=== PATIENT | female | born 1950 | race Native Hawaiian/Other Pacific Islander ===

== ENCOUNTER 2017-02-20 16:15 | Emergency (ER) | payer OTHER ==
[2017-02-20 16:35] VITALS: BMI 32.8
--- NOTE | 2017-02-20 17:06 | PDOC ---
History of Present Illness - General History Source: Patient Exam Limitations: No Limitations - History of Present Illness Initial Comments: 02/20/17 17:20 The patient is a 66 year old female, with a significant past medical history of diabetes and HTN, who presents to the emergency department with abdominal pain, bloating, fatigue, chills and nausea for the past day. She describes her pain as localized in the epigastric region, ranging from mild to moderate, without radiation or modifying factor. She also reports frequent burping associated with her chief complaint. She reports that she is not eating much but is being able to pass gas. She states that she is from [place] and is visiting her son whose birthday is today. She notes that she previously went to urgent care for treatment and was referred to the ED. The patient denies chest pain, shortness of breath, headache and dizziness. Denies fever, chills, vomit, diarrhea and constipation. Denies dysuria, frequency, urgency and hematuria. Allergies: Niacin, sulfa, metformin Past surgical history: None reported Social history: No alcohol, tobacco or drug use reported <Cameron Davila - Last Filed: 02/20/17 17:20> <Jose Waters - Last Filed: 02/20/17 22:01> - General Chief Complaint: Pain, Acute Stated Complaint: ABD PAIN Time Seen by Provider: 02/20/17 17:04 Past History <Cameron Davila - Last Filed: 02/20/17 17:20> - Suicide/Smoking/Psychosocial Hx Smoking History: Never smoked <Jose Waters - Last Filed: 02/20/17 22:01> - Past Medical History Allergies/Adverse Reactions: Allergies Allergy/AdvReac Type Severity Reaction Status Date / Time niacin Allergy Verified 02/20/17 16:32 metformin AdvReac Vomiting Verified 02/20/17 16:32 Sulfa (Sulfonamide AdvReac Verified 02/20/17 16:32 Antibiotics) Home Medications: Ambulatory Orders Alprazolam 2 mg PO HS 02/20/17 Aspirin [ASA -] 81 mg PO DAILY 02/20/17 Insulin Glargine,Hum.rec.anlog [Lantus (nf)] 50 units SQ HS 02/20/17 Insulin Lispro [Humalog] 10 unit SQ BID 10/19/17 Levothyroxine [Synthroid -] 0 mcg PO DAILY 02/20/17 Losartan Potassium [Cozaar -] 0 mg PO DAILY 02/20/17 Pravastatin Sodium [Pravachol (Nf)] 0 mg PO HS 02/20/17 Review of Systems - Review of Systems Able to Perform ROS?: Yes Comments:: 02/20/17 17:21 GENERAL/CONSTITUTIONAL: No fever or chills. No weakness. HEAD, EYES, EARS, NOSE AND THROAT: No change in vision. No ear pain or discharge. No sore throat.- CARDIOVASCULAR: No chest pain or shortness of breath RESPIRATORY: No cough, wheezing, or hemoptysis. GASTROINTESTINAL: (+) Abdominal pain and nausea. No vomiting, diarrhea or constipation. GENITOURINARY: No dysuria, frequency, or change in urination. MUSCULOSKELETAL: No joint or muscle swelling or pain. No neck or back pain. SKIN: No rash NEUROLOGIC: No headache, vertigo, loss of consciousness, or change in strength/ sensation. ENDOCRINE: No increased thirst. No abnormal weight change HEMATOLOGIC/LYMPHATIC: No anemia, easy bleeding, or history of blood clots. ALLERGIC/IMMUNOLOGIC: No hives or skin allergy. <Cameron Davila - Last Filed: 02/20/17 17:20> *Physical Exam - Vital Signs Last Vital Signs Temp Pulse Resp BP Pulse Ox 99.1 F 72 18 136/76 100 02/20/17 16:32 02/20/17 16:32 02/20/17 16:32 02/20/17 16:32 02/20/17 16:32 - Physical Exam Comments: 02/20/17 17:21 GENERAL: Awake, alert, and fully oriented, in no acute distress HEAD: No signs of trauma, normocephalic, atraumatic EYES: PERRLA, EOMI, sclera anicteric, conjunctiva clear ENT: Auricles normal inspection, hearing grossly normal, nares patent, oropharynx clear without exudates. Moist mucosa NECK: Normal ROM, supple, no lymphadenopathy, JVD, or masses LUNGS: No distress, speaks full sentences, clear to auscultation bilaterally HEART: Regular rate and rhythm, normal S1 and S2, no murmurs, rubs or gallops, peripheral pulses normal and equal bilaterally. ABDOMEN: (+) [place] sign. Soft, nontender, normoactive bowel sounds. No guarding, no rebound. No masses EXTREMITIES : Normal inspection, Normal range of motion, no edema. No clubbing or cyanosis. NEUROLOGICAL: Cranial nerves II through XII grossly intact. Normal speech, normal gait, no focal sensorimotor deficits SKIN: Warm, Dry, normal turgor, no rashes or lesions noted. <Cameron Davila - Last Filed: 02/20/17 17:20> - Vital Signs Last Vital Signs Temp Pulse Resp BP Pulse Ox 99.1 F 72 18 136/76 100 02/20/17 16:32 02/20/17 16:32 02/20/17 16:32 02/20/17 16:32 02/20/17 16:32 <Jose Waters - Last Filed: 02/20/17 22:01> ED Treatment Course - LABORATORY CBC & Chemistry Diagram: 02/20/17 18:20 02/20/17 18:20 <Jose Waters - Last Filed: 02/20/17 22:01> *DC/Admit/Observation/Transfer - Attestations Scribe Attestion: 02/20/17 17:22 Documentation prepared by Cameron Davila, acting as medical lab scientist for Jose Waters MD <Cameron Davila - Last Filed: 02/20/17 17:20> - Discharge Dispostion Admit: No - Attestations Physician Attestion: 02/20/17 17:06 I, Dr. Jose Waters, attest that this document has been prepared under my direction and personally reviewed by me in its entirety. I further attest, that it accurately reflects all work, treatment, procedures and medical decision -making performed by me. <Jose Waters - Last Filed: 02/20/17 22:01> Diagnosis at time of Disposition: Abdominal bloating, Malaise and fatigue, History of recent travel - Discharge Dispostion Disposition: HOME Condition at time of disposition: Unchanged/Unknown - Referrals Referrals: Jung Goldman MD [Staff Physician] - - Patient Instructions Printed Discharge Instructions: DI for Abdominal Pain-Adult Additional Instructions: Mrs Osorio- I am sorry that you do not feel well and you are experiencing some abdominal discomfort and bloating. Your laboratory work up is all unremarkable and does not lead us to a diagnosis. Your X-Rays do not show us anything wrong and your ultrasound shows us a normal gallbladder and there is no gallstone. I believe that you can use simethicone for gas and bloating, you can use the zofran odt for upset stomach and try to eat more fiber and drink more water. You can follow up with your doctors in [place] once you get home. You can call Dr. Goldman who is a power washer for follow up here in [place] if you are going to be here for a while. Return to us if worse or new symptoms occur. Best- Dr. Jose Waters
[2017-02-20 18:30] LABS: BASOPHIL 0.6 % (0-2.0); EOSINOPHIL 1.2 % (0-4.5); MCH 27.7 pg (25.7-33.7); MCHC 33.7 g/dl (32.0-36.0); MEAN CELL VOLUME 82.3 fl (80-96); MEAN PLT VOLUME 8.4 fl (7.5-11.1); NEUTROPHILS 60.6 % (42.8-82.8); PLATELET COUNT 230 K/MM3 (134-434); RDW 14.4 % (11.6-15.6); WHITE BLOOD COUNT 10.6 K/mm3 (4.0-10.0)
[2017-02-20 18:53] LABS: ALBUMIN 3.8 g/dl (3.4-5.0); ANION GAP 7 (8-16); BILIRUBIN,TOTAL 0.3 mg/dL (0.2-1.0); CALCIUM 8.4 mg/dL (8.5-10.1); CHOLESTEROL 191 mg/dL (50-200); CO2 28 mmol/L (21-32); CREATININE 0.8 mg/dL (0.55-1.02); GLUCOSE,RANDOM 108 mg/dL (74-106); SGPT/ALT 30 U/L (12-78); TOT PROT 7.5 g/dl (6.4-8.2)
[2017-02-20 18:55] LABS: ALK PHOS 100 U/L (45-117); CPK 233 IU/L (26-192); TROPONIN I < 0.02 ng/ml (0.00-0.05)
[2017-02-20 18:56] LABS: SGOT/AST 27 U/L (15-37)
[2017-02-20] MEDS ORDERED: ONDANSETRON *ODT* 4 MG TABLET SL ONE (21:02)
[2017-02-20] MEDS ORDERED: MAGNESIUM HYDROX 2400MG/30ML ORAL SUSPENSION 30 ML CUP PO ONE (21:02)
[2017-02-20] MEDS ORDERED: SIMETHICONE 80 MG TAB.CHEW (FP) PO ONE (21:04)
[2017-02-20] MEDS ORDERED: MAG HYDROX/AL HYDROX/SIMETH 30 ML UNIT-DOSE CUP ONE (21:44)
[2017-02-20] MEDS ORDERED: ONDANSETRON *ODT* 4 MG TABLET ONE (21:44)
[2017-02-20 22:21] VITALS: BP 128/72; PULSE 75; TEMP 98.6
--- NOTE | 2017-02-25 09:17 | EKG ---
Test Reason : Blood Pressure : / mmHG Vent. Rate : 075 BPM Atrial Rate : 075 BPM P-R Int : 152 ms QRS Dur : 078 ms QT Int : 364 ms P-R-T Axes : 057 020 135 degrees QTc Int : 406 ms NORMAL SINUS RHYTHM CANNOT RULE OUT ANTERIOR INFARCT , AGE UNDETERMINED NONSPECIFIC ST ABNORMALITY NO PREVIOUS ECGS AVAILABLE Confirmed by JESSICA MONTES MD ([id number]) on 02/21/2017 9:47:01 AM Also confirmed by JESSICA MONTES MD ([id number]), supervising editor news reel LISA JORGENSEN ([id number]) on 02/25/2017 9:16:44 AM Referred By: Confirmed By:JESSICA MONTES MD
== END 2017-02-20 22:20 | disposition home or self-care (01) ==
LOC: JER 16:15
DX: R10.84 Generalized abdominal pain (principal); R53.81 Other malaise
CPT/HCPCS: 36415; 71010-TC; 74020-TC; 76705-TC; 80053; 80061; 82550; 82553; 83721; 84484; 85025; 87086; 93005; 93010; 99283-25